=== PATIENT | female | born 2000 | race Caucasian/White ===

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

== ENCOUNTER 2019-09-17 16:05 | Emergency (ER) | payer OTHER ==
[~2019-09-17] VITALS: Ht 157.5 cm; Wt 50.5 kg
[~2019-09-17 16:05] MED LIST: RANI15TA PO; ZOFR4TAB14 PO
[2019-09-17] MEDS ORDERED: LORazepam 2 MG/ML VIAL (J2060) IV STA (16:15)
[2019-09-17] MEDS ORDERED: NS 1,000 ML IV ONE (16:15)
[2019-09-17 16:46] LABS: HEMOGLOBIN 11.4 g/dl (12.0-15.5); MEAN CORPUSCULAR HEMOGLOBIN 25.5 pg (27.0-33.0); MEAN CORPUSCULAR HGB CONC 32.6 g/dl (32.0-36.5); MEAN CORPUSCULAR VOLUME 78.3 fl (80.0-96.0); PLATELET COUNT, AUTOMATED 390 10^3/uL (150-450); RED BLOOD COUNT 4.47 10^6/uL (4.00-5.40); WHITE BLOOD COUNT 8.3 10^3/uL (4.0-10.0)
[2019-09-17 17:00] LABS: INR 1.15; PROTHROMBIN TIME 14.4 SECONDS (11.8-14.0)
[2019-09-17] MEDS ORDERED: SERT-141 PO (17:02)
[2019-09-17] MEDS ORDERED: KEPP1TAB PO (17:02)
[2019-09-17] MEDS ORDERED: FERR325T3 PO (17:02)
[2019-09-17] MEDS ORDERED: TRAZ-252 PO (17:02)
[2019-09-17] MEDS ORDERED: VIMP50TA3 PO (17:02)
[2019-09-17 17:14] LABS: BLOOD UREA NITROGEN 9 MG/DL (7-18); CALCIUM LEVEL 9.8 MG/DL (8.5-10.1); CARBON DIOXIDE LEVEL 19 MEQ/L (21-32); CHLORIDE LEVEL 110 MEQ/L (98-107); CREATININE FOR GFR 0.77 MG/DL (0.55-1.30); GLUCOSE, FASTING 100 MG/DL (70-100); POTASSIUM SERUM 3.4 MEQ/L (3.5-5.1); SODIUM LEVEL 139 MEQ/L (136-145)
[2019-09-17 18:45] VITALS: BP 113/67
== END 2019-09-17 18:55 | disposition home or self-care (01) ==
LOC: EDBD 16:05 → M ED 16:05
DX: R06.4 Hyperventilation (principal); K06.8 Other specified disorders of gingiva and edentulous alveolar ridge; E03.9 Hypothyroidism, unspecified; F17.218 Nicotine dependence, cigarettes, with other nicotine-induced disorders
CPT/HCPCS: 80048; 85027; 85610; 96374; 96375; 99284; J2060

== ENCOUNTER 2019-10-03 12:32 | Emergency (ER) | payer OTHER ==
[~2019-10-03] VITALS: Ht 157.5 cm; Wt 50.1 kg
[2019-10-03 12:32] VITALS: BP 119/55
[~2019-10-03 12:32] MED LIST changes: +FERR325T3 PO; +KEPP1TAB PO; +SERT-141 PO; +TRAZ-252 PO; +VIMP50TA3 PO
== END 2019-10-03 15:15 | disposition left against medical advice (07) ==
LOC: M ED 12:32
DX: M79.672 Pain in left foot (principal); Z53.21 Procedure and treatment not carried out due to patient leaving prior to being seen by health care provider

== ENCOUNTER 2020-02-19 07:19 | Emergency (ER) | payer OTHER ==
[~2020-02-19] VITALS: Ht 157.5 cm; Wt 52.4 kg
[2020-02-19] MEDS ORDERED: ALL10TAB2 PO (08:17)
[2020-02-19] MEDS ORDERED: AFRI0.058 (08:17)
[2020-02-19] MEDS ORDERED: BENZ200C70 PO (08:17)
[2020-02-19 08:23] VITALS: BP 109/72
== END 2020-02-19 08:24 | disposition home or self-care (01) ==
LOC: M ED 07:19
DX: J30.9 Allergic rhinitis, unspecified (principal); Z79.899 Other long term (current) drug therapy